=== PATIENT | male | born 1970 | race Two or more races ===

== ENCOUNTER 2024-06-11 04:28 | Day surgery (SDC) | payer OTHER ==
[2024-06-11 08:06] VITALS: BMI 21.8
[2024-06-11] MEDS ORDERED: MIDAZOLAM HCL 2 MG/2 ML SINGLE DOSE VIAL ONE (10:35)
[2024-06-11] MEDS ORDERED: ONDANSETRON 4 MG/2 ML VIAL ONE (10:40)
[2024-06-11 12:24] VITALS: BP 123/73; PULSE 72; RESP 18; TEMP 97.5
== END 2024-06-11 12:50 | disposition home or self-care (01) ==
LOC: JASU-SURG 04:28
PROVIDERS: ATTEND Urology
PROC: 0TF4XZZ Fragmentation in Left Kidney Pelvis, External Approach (ICD-10-PCS; principal; 2024-06-11 10:30)
DX: N20.0 Calculus of kidney (principal)